=== PATIENT | male | born 1930 | race Caucasian/White ===

== ENCOUNTER 2017-04-27 21:44 | Emergency (ER) | payer MEDICARE ==
[~2017-04-27] VITALS: Ht 170.2 cm; Wt 72.6 kg
[2017-04-27 22:55] LABS: Basophils # (auto) 0 uL; Basophils % (auto) 0.4 % (0.0-2.0); CONDITION Y; Eosinophils # (auto) 0 uL; Eosinophils % (auto) 0.4 % (0.0-7.0); Hemoglobin 15.2 g/dL (13.5-17.5); Lymphocytes # (auto) 1.1 uL; Lymphocytes % (auto) 11.7 % (10.0-50.0); Mean Corpuscular Hemoglobin 29.7 pg (28.0-32.0); Mean Corpuscular Hgb Conc. 33.1 g/dL (32.0-36.0); Mean Corpuscular Volume 89.8 fL (80.0-100.0); Mean Platelet Volume 8.4 fL (7.4-10.4); Monocytes # (auto) 0.9 uL; Monocytes % (auto) 8.8 % (0.0-12.0); Neutrophils # (auto) 7.6 uL; Neutrophils % (auto) 78.7 % (37.0-80.0); Platelet Count (auto) 243 10^3/uL (140-450); Red Cell Distribution Width 13.6 % (11.6-16.0); White Blood Cell 9.7 10^3/uL (4.4-10.8)
[2017-04-27] MEDS ORDERED: HYDROmorphone HCL 2 MG/ML VL IV ONE (23:00)
[2017-04-27] MEDS ORDERED: SODIUM CHLORIDE 0.9% 1,000 ML IV ONE (23:00)
[2017-04-27] MEDS ORDERED: ONDANSETRON HCL 4 MG/2 ML VIAL IV ONE (23:00)
[2017-04-27 23:06] LABS: Albumin 3.8 g/dL (3.4-5.0); BUN/Creatinine Ratio 16.4; Calcium 9.6 mg/dL (8.5-10.1)
[2017-04-27 23:08] LABS: INR 1.05 (0.9-1.15); Partial Thromboplastin Time 25.6 sec (22.64-33.71); Prothrombin Time 11.4 sec (9.37-12.3)
[2017-04-27 23:11] LABS: Bilirubin, Total 0.7 mg/dL (0.2-1.0); Total Protein 7.3 g/dL (6.4-8.2)
[2017-04-27] MEDS ORDERED: IOHEXOL 300 MG/ML 100ML BOTTLE IJ ONE (23:17)
[2017-04-27 23:53] LABS: Urine Bilirubin Negative (Negative); Urine Blood Negative /uL (Negative); Urine Color Colorless (Yellow); Urine Glucose Normal (Normal); Urine Ketone Negative (Negative); Urine Nitrite Negative (Negative); Urine RBC <1 /hpf (0 - 3); Urine Urobilinogen Normal (Negative); Urine pH 7.5 (5.0-8.0)
[2017-04-28 03:00] VITALS: BP 154/99
[2017-04-28] MEDS ORDERED: ACETAMINOPHEN 500 MG TAB PO ONE (04:45)
== END 2017-04-28 05:01 | disposition home or self-care (01) ==
LOC: ER 21:51
DX: S32.010A Wedge compression fracture of first lumbar vertebra, initial encounter for closed fracture (principal); S16.1XXA Strain of muscle, fascia and tendon at neck level, initial encounter; S20.219A Contusion of unspecified front wall of thorax, initial encounter; S09.90XA Unspecified injury of head, initial encounter; E78.5 Hyperlipidemia, unspecified; I10 Essential (primary) hypertension; Z88.2 Allergy status to sulfonamides; V89.2XXA Person injured in unspecified motor-vehicle accident, traffic, initial encounter; Y93.I9 Activity, other involving external motion; Y99.8 Other external cause status; Y92.89 Other specified places as the place of occurrence of the external cause
CPT/HCPCS: 36415; 70450; 71260; 72125; 74177; 80053; 81001; 84484; 85025; 85610; 85730; 93005; 96361; 96374; 96375; 99285; J1170; J2405; J7030; Q9967

== ENCOUNTER 2018-05-27 16:00 | Emergency (ER) | payer MEDICARE ==
[~2018-05-27] VITALS: Ht 170.2 cm; Wt 73.9 kg
[2018-05-27 16:15] VITALS: BP 150/66
== END 2018-05-27 17:36 | disposition home or self-care (01) ==
LOC: ER 16:04
DX: S63.283A Dislocation of proximal interphalangeal joint of left middle finger, initial encounter (principal); E78.5 Hyperlipidemia, unspecified; Z88.2 Allergy status to sulfonamides; Z86.73 Personal history of transient ischemic attack (TIA), and cerebral infarction without residual deficits; W01.198A Fall on same level from slipping, tripping and stumbling with subsequent striking against other object, initial encounter; Y93.01 Activity, walking, marching and hiking; Y99.8 Other external cause status; Y92.89 Other specified places as the place of occurrence of the external cause
CPT/HCPCS: 26770; 73140